=== PATIENT | male | born 1970 | race American Indian/Alaskan Native ===

== ENCOUNTER 2022-02-28 14:56 | Inpatient (IN) | payer BC ==
[2022-02-28] MEDS ORDERED: fentaNYL 100 MCG/2 ML INJ IV ONE (15:54)
--- NOTE | 2022-02-28 16:17 | Emergency Department Report ---
HPI - General Chief Complaint: Chest Pain Time Seen by Provider: 02/28/22 15:13 - [facility] HPI: Room 21 The patient is a 51-year-old male present with chief complaint of chest pain shortness of breath. Patient states he initially developed chest pain 02/26/2022 and went to [place] emergency department that evening. Patient was diagnosed with a PE and initiated on Xarelto. Patient states has been compliant with medication however today his chest pain shortness of breath increased dramatically. Patient called 911 and was transported to the ED. In the ED the patient was found to be hypoxic from 90 - 91% on room air. Patient states he is not on home O2. Patient currently gets his chest pain a score of 10/10. 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 (febrile?) - Family History Family history: no significant - Social History Smoking Status: Never Smoker Substance Use Type: Alcohol (Occasional), Marijuana ED Review of Systems ROS: Stated complaint: CHEST PAIN Other details as noted in HPI Constitutional: no symptoms reported Eyes: denies: eye pain ENT: denies: throat pain Respiratory: shortness of breath Cardiovascular: chest pain Endocrine: no symptoms reported Gastrointestinal: denies: abdominal pain Genitourinary: denies: dysuria Musculoskeletal: myalgia Neurological: denies: headache Physical Exam - Physical Exam Vital Signs: Vital Signs 02/28/22 15:04 Temperature 98.5 F Pulse Rate 70 Respiratory 14 Rate Blood Pressure 118/69 [Left] O2 Sat by Pulse 98 Oximetry Physical Exam: GENERAL: The patient is well-developed well-nourished male lying on stretcher not appearing to be in acute distress. [] HEENT: Normocephalic. Atraumatic. Extraocular motions are intact. Patient has moist mucous membranes. NECK: Supple. Trachea midline CHEST/LUNGS: Clear to auscultation. There is no respiratory distress noted. HEART/CARDIOVASCULAR: Regular. There is no tachycardia. There is no gallop rub or murmur. ABDOMEN: Abdomen is soft, nontender. Patient has normal bowel sounds. There is no abdominal distention. SKIN: There is no rash. There is no edema. There is no diaphoresis. NEURO: The patient is awake, alert, and oriented. The patient is cooperative. The patient has no focal neurologic deficits. The patient has normal speech. GCS 15 MUSCULOSKELETAL: There is no evidence of acute injury. ED Course Vital Signs 02/28/22 15:04 Temperature 98.5 F Pulse Rate 70 Respiratory 14 Rate Blood Pressure 118/69 [Left] O2 Sat by Pulse 98 Oximetry ED Medical Decision Making - Lab Data Result diagrams: 02/28/22 16:27 02/28/22 16:27 Laboratory Tests 02/28/22 02/28/22 02/28/22 16:27 16:27 16:27 WBC 8.8 RBC 5.30 H Hgb 15.0 Hct 46.0 H MCV 87 MCH 28 MCHC 33 RDW 13.3 Plt Count 273 Lymph % (Auto) 11.9 L [place] % (Auto) 10.4 H Eos % (Auto) 0.4 Baso % (Auto) 0.4 Lymph # (Auto) 1.0 L [place] # (Auto) 0.9 H Eos # (Auto) 0.0 Baso # (Auto) 0.0 Seg Neutrophils % 76.9 H Seg Neutrophils # 6.7 PT 24.9 H INR 1.97 H APTT 42.4 H Sodium 139 Potassium 4.6 Chloride 100.5 Carbon Dioxide 29 Anion Gap 14 BUN 13 Creatinine 1.3 Estimated GFR 58 BUN/Creatinine Ratio 10 Glucose 102 H Calcium 8.7 Total Creatine Kinase 215 H CK-MB (CK-2) 1.6 CK-MB (CK-2) Rel Index 0.7 Troponin T < 0.010 NT-Pro-B Natriuret Pep 9.66 - EKG Data -: EKG Interpreted by Ri EKG shows normal: sinus rhythm Rate: normal - EKG Data When compared to previous EKG there are: previous EKG unavailable Interpretation: nonspecific ST-T wave zaida - Radiology Data Radiology results: report reviewed (CTA chest, CT abdomen pelvis), image reviewed (CTA chest, CT abdomen pelvis) [facility], [place] [address] [place] [address] Cat Scan Report Signed Patient: HUEY RANGEL MR#: [id number] : 1970 Acct:[id number] Age/Sex: 51 / M ADM Date: 02/28/22 Loc: ED Attending Dr: Ordering Physician: WILMER ADEN MD Date of Service: 02/28/22 Procedure(s): CT angio chest Accession Number(s): [id number] cc: WILMER ADEN MD CTA CHEST WITH CONTRAST INDICATION / CLINICAL INFORMATION: Chest pain, shortness of breath 100ml of [id number]. TECHNIQUE: Axial CT images were obtained through the chest after injection of IV contrast. 3 plane MIP and/or 3D reconstructions were produced. All CT scans at this location are performed using CT dose reduction for ALARA by means of automated exposure control. COMPARISON: None available. FINDINGS: PULMONARY EMBOLUS: None. HEART: No significant abnormality. THORACIC AORTA: No significant abnormality. CORONARY ARTERY CALCIFICATION: Absent -- None. PLEURA: Small layering left-sided pleural effusion. No pneumothorax. LUNGS: Alveolar consolidation with dense groundglass opacities within the lingula consistent with acute pneumonia. Other milder scattered subpleural consolidation and confluent atelectasis involving the right middle lobe and bilateral lung bases. LYMPH NODES: No pathologic thoracic lymphadenopathy. UPPER ABDOMEN: No acute findings. SKELETAL STRUCTURES: No acute or destructive osseous process. Mild bilateral retroareolar gynecomastia. IMPRESSION: 1. No evidence for pulmonary thromboembolus. 2. Mild acute pneumonia, most notably within the lingula, and small layering left pleural effusion. 3. Confluent atelectasis within the right middle lobe and bilateral lung bases. Signer Name: Kelly Servin MD Signed: 02/28/2022 6:13 PM Workstation Name: [id number] Transcribed By: RH Dictated By: KELLY SERVIN MD Electronically Authenticated By: KELLY SERVIN MD Signed Date/Time: 02/28/221812 DD/ 07 TD/TT: [facility], [place] [address] [place] [address] Cat Scan Report Signed Patient: HUEY RANGEL MR#: [id number] : 1970 Acct:[id number] Age/Sex: 51 / M A DM Date: 02/28/22 Loc: ED Attending Dr: Ordering Physician: WILMER ADEN MD Date of Service: 02/28/22 Procedure(s): CT abdomen pelvis w con Accession Number(s): [id number] cc: WILMER ADEN MD CT ABDOMEN AND PELVIS WITH CONTRAST INDICATION / CLINICAL INFORMATION: Abdominal pain. TECHNIQUE: Axial CT images were obtained through the abdomen and pelvis after 100 mL Omnipaque [address] scans at this location are performed using CT dose red uction for ALARA by means of automated exposure control. COMPARISON: None available. FINDINGS: LOWER CHEST: Small left pleural effusion with bibasilar atelectasis. Lingular pneumonia. LIVER: No significant abnormality. GALLBLADDER: No significant abnormality. BILE DUCTS: No significant abnormality. PANCREAS: No significant abnormality. SPLEEN: No significant abnormality. ADRENALS: No significant abnormality. RIGHT KIDNEY / URETER: No significant abnormality. LEFT KIDNEY / URETER: No significant abnormality. STOMACH / SMALL BOWEL: No significant abnormality. COLON: No significant abnormality. APPENDIX: No significant abnormality. PERITONEUM: No free fluid. No free air. No fluid collection. LYMPH NODES: No significant adenopathy. AORTA / ARTERIES: No significant abnormality. IVC / VEINS: No significant abnormality. URINARY BLADDER: No significant abnormality. REPRODUCTIVE ORGANS: No significant abnormality. ADDITIONAL FINDINGS: None. SKELETAL SYSTEM: Curvilinear subchondral sclerosis in both femoral heads with no articular surface collapse. No acute skeletal abnormality. IMPRESSION: 1. No acute process in the abdomen or pelvis. 2. Lingular pneumonia with small pleural effusion and bibasilar atelectasis. 3. Bilateral femoral head avascular necrosis, stage II. Signer Name: Sabi Izquierdo MD Signed: 02/28/2022 6:42 PM Workstation Name: [id number] Transcribed By: DT Dictated By: Christian Izquierdo MD Electronically Authenticated By: Christian Izquierdo MD Signed Date/Time: 02/28/221841 DD/ 39 TD/TT: - Differential Diagnosis PE, hypoxia Critical care attestation.: If time is entered above; I have spent that time in minutes in the direct care of this critically ill patient, excluding procedure time. ED Disposition Clinical Impression: Hypoxia, Chest pain, Pneumonia, History of pulmonary embolus (PE) Disposition: ADMITTED INPATIENT Is pt being admited?: Yes Does the pt Need Aspirin: No Condition: Serious Instructions: Nonspecific Chest Pain, Adult, Bacterial Pneumonia (ED) Time of Disposition: 18:46 (Care transferred to hospitalist (Dr. Mary)) Heart Score - HEART Score History: Slightly suspicious EKG: Non-specific Age: 45-65 Risk factors: 1-2 risk factors Troponin: < normal limit HEART Score: 3 - EKG Read Time Time EKG Completed: 15:31 EKG Read Time: 15:37
[2022-02-28] MEDS: ONDANSETRON 4 MG/2 ML INJ IV ONE ×2 (16:25→20:11)
[2022-02-28 17:03] LABS: Basophils % (Auto) 0.4 % (0.0-1.8); Creatine Kinase MB 1.6 ng/mL (0.0-4.0); Eosinophils % (Auto) 0.4 % (0.0-4.3); Lymphocytes % (Auto) 11.9 % (13.4-35.0); Mean Corpuscular HGB Conc 33 % (32-34); Mean Corpuscular Volume 87 fl (84-94); Monocytes # (Auto) 0.9 K/mm3 (0.0-0.8); Monocytes % (Auto) 10.4 % (0.0-7.3); Platelet Count 273 K/mm3 (140-440); Red Cell Distribution Width 13.3 % (13.2-15.2)
[2022-02-28 17:04] LABS: BUN/Creatinine Ratio 10; Blood Urea Nitrogen 13 mg/dL (9-20); Calcium 8.7 mg/dL (8.4-10.2); Hemolysis Index 51
[2022-02-28 17:14] LABS: INR 1.97 (0.87-1.13)
[2022-02-28 17:15] LABS: Partial Thromboplastin Time 42.4 Sec. (24.2-36.6)
--- NOTE | 2022-02-28 18:17 | Cat Scan Report ---
CTA CHEST WITH CONTRAST INDICATION / CLINICAL INFORMATION: Chest pain, shortness of breath 100ml of [id number]. TECHNIQUE: Axial CT images were obtained through the chest after injection of IV contrast. 3 plane OK P and/or 3D reconstructions were produced. All CT scans at this location are performed using CT dose reduction for ALARA by means of automated exposure control. COMPARISON: None available. FINDINGS: PULMONARY EMBOLUS: None. HEART: No significant abnormality. THORACIC AORTA: No significant abnormality. CORONARY ARTERY CALCIFICATION: Absent -- None. PLEURA: Small layering left-sided pleural effusion. No pneumothorax. LUNGS: Alveolar consolidation with dense groundglass opacities within the lingula consistent with acu te pneumonia. Other milder scattered subpleural consolidation and confluent atelectasis involving the right middle lobe and bilateral lung bases. LYMPH NODES: No pathologic thoracic lymphadenopathy. UPPER ABDOMEN: No acute findings. SKELETAL STRUCTURES: No acute or destructive osseous process. Mild bilateral retroareolar gynecomastia. IMPRESSION: 1. No evidence for pulmonary thromboembolus. 2. Mild acute pneumonia, most notably within the lingula, and small layering left pleural effusion. 3. Confluent atelectasis within the right middle lobe and bilateral lung bases. Signer Name: Jose Servin MD Signed: 02/28/2022 6:13 PM Workstation Name: [email or web address]
--- NOTE | 2022-02-28 18:47 | Cat Scan Report ---
CT ABDOMEN AND PELVIS WITH CONTRAST INDICATION / CLINICAL INFORMATION: Abdominal pain. TECHNIQUE: Axial CT images were obtained through the abdomen and pelvis after 100 mL Omnipaque [address] scans at this location are performed using CT dose reduction for ALARA by means of automated exposure control. COMPARISON: None available. FINDINGS: LOWER CHEST: Small left pleural effusion with bibasilar atelectasis. Lingular pneumonia. LIVER: No significant abnormality. GALLBLADDER: No significant abnormality. BILE DUCTS: No significant abnormality. PANCREAS: No significant abnormality. SPLEEN: No significant abnormality. ADRENALS: No significant abnormality. RIGHT KIDNEY / URETER: No significant abnormality. LEFT KIDNEY / URETER: No significant abnormality. STOMACH / SMALL BOWEL: No significant abnormality. COLON: No significant abnormality. APPENDIX: No significant abnormality. PERITONEUM: No free fluid. No free air. No fluid collection. LYMPH NODES: No significant adenopathy. AORTA / ARTERIES: No significant abnormality. IVC / VEINS: No significant abnormality. URINARY BLADDER: No significant abnormality. REPRODUCTIVE ORGANS: No significant abnormality. ADDITIONAL FINDINGS: None. SKELETAL SYSTEM: Curvilinear subchondral sclerosis in both femoral heads with no articular surface co llapse. No acute skeletal abnormality. IMPRESSION: 1. No acute process in the abdomen or pelvis. 2. Lingular pneumonia with small pleural effusion and bibasilar atelectasis. 3. Bilateral femoral head avascular necrosis, stage II. Signer Name: Sabi Izquierdo MD Signed: 02/28/2022 6:42 PM Workstation Name: [email or web address]
[2022-02-28] MEDS ORDERED: ACETAMINOPHEN 325 MG TAB PO PRN ×2 (18:49→21:46)
[2022-02-28] MEDS ORDERED: ONDANSETRON 4 MG/2 ML INJ IV PRN ×2 (18:49→21:46)
[2022-02-28] MEDS ORDERED: cefTRIAXone/NS 1 GM/50 ML 1 GM/50 ML BAG IV ONE (19:06)
[2022-02-28] MEDS ORDERED: AZITHROMYCIN/NS 500 MG/250 ML 500 MG/250 ML BAG IV ONE (19:06)
[2022-02-28] MEDS: MORPHINE 2 MG/1 ML INJ IV PRN (20:12)
[2022-02-28] MEDS ORDERED: MORPHINE 2 MG/1 ML INJ IV PRN (21:46)
[2022-02-28] MEDS ORDERED: ALBUTEROL 2.5 MG/3 ML NEBU IH PRN (21:46)
--- NOTE | 2022-02-28 21:54 | History and Physical Report ---
History of Present Illness Date of examination: 02/28/22 Date of admission: 02/28/22 Chief complaint: Chest pain History of present illness: 51-year-old male with history of pulmonary embolism on Xarelto, CHF, high cholesterol, hypertension was brought to the emergency room because of chest pain shortness of breath. Patient states he initially developed chest pain 02/26/2022 and [facility]. Patient was diagnosed with a PE and initiated on Xarelto. Patient states has been compliant with medication however today his chest pain shortness of breath increased dramatically. Patient called 911 and was transported to the ED. In the ED the patient was found to be hypoxic from 90 - 91% on room air. Patient states he is not on home O2. Patient currently gets his chest pain a score of 10/10. In the emergency room initial cardiac enzyme is negative. But patient CT scan of the chest shows no evidence for pulmonary thromboembolism. Mild acute pneumonia, most notably within the lingula and a small layering left pleural effusion. Confluent atelectasis within the right middle lobe and bilateral lung bases. 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 (febrile?)) Social history: alcohol abuse, other (Marijuana) Family history: no significant family history Medications and Allergies Allergies Allergy/AdvReac Type Severity Reaction Status Date / Time lisinopril Allergy Unknown Verified 02/28/22 16:29 Active Meds: Active Medications Acetaminophen (Acetaminophen 325 Mg Tab) 650 mg PO Q4H PRN PRN Reason: Pain MILD(1-3)/Fever >100.5/JAUREGUI Acetaminophen (Acetaminophen 325 Mg Tab) 650 mg PO Q4H PRN PRN Reason: Pain MILD(1-3)/Fever >100.5/JAUREGUI Morphine Sulfate (Morphine 2 Mg/1 Ml Inj) 2 mg IV Q4H PRN PRN Reason: Pain, Moderate (4-6) Last Admin: 02/28/22 20:12 Dose: 2 mg Ondansetron HCl (Ondansetron 4 Mg/2 Ml Inj) 4 mg IV Q8H PRN PRN Reason: Nausea And Vomiting Ondansetron HCl (Ondansetron 4 Mg/2 Ml Inj) 4 mg IV Q8H PRN PRN Reason: Nausea And Vomiting Sodium Chloride (Sodium Chloride 0.9% 10 Ml Flush Syringe) 10 ml IV BID BEN Sodium Chloride (Sodium Chloride 0.9% 10 Ml Flush Syringe) 10 ml IV PRN PRN PRN Reason: LINE FLUSH Sodium Chloride (Sodium Chloride 0.9% 10 Ml Flush Syringe) 10 ml IV BID BEN Review of Systems All systems: negative Constitutional: other (Myalgia) Cardiovascular: chest pain, shortness of breath, dyspnea on exertion Respiratory: shortness of breath, dyspnea on exertion Exam - Constitutional Vitals: Temp Pulse Resp BP Pulse Ox 98.5 F 74 19 130/82 88 02/28/22 15:04 02/28/22 19:00 02/28/22 19:00 02/28/22 19:00 02/28/22 19:00 General appearance: Present: no acute distress, well-nourished - EENT Eyes: Present: PERRL ENT: hearing intact, clear oral mucosa - Neck Neck: Present: supple, normal ROM - Respiratory Respiratory effort: normal Respiratory: bilateral: CTA - Cardiovascular Heart Sounds: Present: S1 & S2. Absent: rub, click - Extremities Extremities: pulses symmetrical, No edema Peripheral Pulses: within normal limits - Abdominal General gastrointestinal: Present: soft, non-tender, non-distended, normal bowel sounds Male genitourinary: Present: normal - Integumentary Integumentary: Present: clear, warm, dry - Musculoskeletal Musculoskeletal: gait normal, strength equal bilaterally - Psychiatric Psychiatric: appropriate mood/affect, intact judgment & insight - Neurologic Neurologic: CNII-XII intact, moves all extremities HEART Score - HEART Score EKG: Non-specific Age: 45-65 Risk factors: 1-2 risk factors Troponin: Troponin T < 0.010 ng/mL (0.00-0.029) 02/28/22 16:27 Troponin: < normal limit Results - Labs CBC & Chem 7: 02/28/22 16:27 02/28/22 16:27 Labs: Laboratory Last Values WBC 8.8 K/mm3 (4.5-11.0) 02/28/22 16:27 RBC 5.30 M/mm3 (3.65-5.03) H 02/28/22 16:27 Hgb 15.0 gm/dl (11.8-15.2) 02/28/22 16:27 Hct 46.0 % (35.5-45.6) H 02/28/22 16: MCV 87 fl (84-94) 02/28/22 16: MCH 28 pg (28-32) 02/28/22 16: MCHC 33 % (32-34) 02/28/22 16:27 RDW 13.3 % (13.2-15.2) 02/28/22 16: Plt Count 273 K/mm3 (140-440) 02/28/22 16:27 Lymph % (Auto) 11.9 % (13.4-35.0) L 02/28/22 16: [place] % (Auto) 10.4 % (0.0-7.3) H 02/28/22 16: Eos % (Auto) 0.4 % (0.0-4.3) 02/28/22 16: Baso % (Auto) 0.4 % (0.0-1.8) 02/28/22 16: Lymph # (Auto) 1.0 K/mm3 (1.2-5.4) L 02/28/22 16:27 [place] # (Auto) 0.9 K/mm3 (0.0-0.8) H 02/28/22 16: Eos # (Auto) 0.0 K/mm3 (0.0-0.4) 02/28/22 16: Baso # (Auto) 0.0 K/mm3 (0.0-0.1) 02/28/22 16: Seg Neutrophils % 76.9 % (40.0-70.0) H 02/28/22 16: Seg Neutrophils # 6.7 K/mm3 (1.8-7.7) 02/28/22 16:27 PT 24.9 Sec. (12.2-14.9) H 02/28/22 16:27 INR 1.97 (0.87-1.13) H 02/28/22 16:27 APTT 42.4 Sec. (24.2-36.6) H 02/28/22 16:27 Sodium 139 mmol/L (137-145) 02/28/22 16:27 Potassium 4.6 mmol/L (3.6-5.0) 02/28/22 16:27 Chloride 100.5 mmol/L (98-107) 02/28/22 16:27 Carbon Dioxide 29 mmol/L (22-30) 02/28/22 16:27 Anion Gap 14 mmol/L 02/28/22 16:27 BUN 13 mg/dL (9-20) 02/28/22 16:27 Creatinine 1.3 mg/dL (0.8-1.3) 02/28/22 16:27 Estimated GFR 58 ml/min 02/28/22 16:27 BUN/Creatinine Ratio 10 % 02/28/22 16:27 Glucose 102 mg/dL (75-100) H 02/28/22 16:27 Calcium 8.7 mg/dL (8.4-10.2) 02/28/22 16:27 Total Creatine Kinase 215 units/L (55-170) H 02/28/22 16:27 CK-MB (CK-2) 1.6 ng/mL (0.0-4.0) 02/28/22 16:27 CK-MB (CK-2) Rel Index 0.7 (0-4) 02/28/22 16:27 Troponin T < 0.010 ng/mL (0.00-0.029) 02/28/22 16:27 NT-Pro-B Natriuret Pep 9.66 pg/mL (0-900) 02/28/22 16:27 - Imaging and Cardiology CT scan - chest: report reviewed Assessment and Plan VTE prophylaxis?: Chemical Plan of care discussed with patient/family: Yes - Patient Problems (1) Pneumonia Status: Acute Plan to address problem: Admit the patient to the medical telemetry. Oxygen via nasal cannula 3 L/min. DuoNeb by nebulizer every 4 hours. Albuterol via nebulizer every 4 hours as needed. Rocephin 2 g IV daily. Zithromax 500 mg p.o. daily. We will do the blood culture and sputum culture. Recheck CBC in the morning (2) Chest pain Status: Acute Plan to address problem: Initial troponin is 0.010. patient is on Xarelto 15 mg p.o. twice a day. We will do the serial troponin. if needed will consult cardiology. (3) CHF (congestive heart failure) Status: Acute Plan to address problem: Is stable. Fluid restriction. Maintain input output. Daily weight. Continue home medication. Outpatient follow-up with cardiology (4) Hypoxia Status: Acute Plan to address problem: Oxygen via nasal cannula 3 L/min. DuoNeb by nebulizer every 4 hours. Albuterol via nebulizer every 4 hours as needed. Recheck CBC in the morning (5) History of pulmonary embolus (PE) Status: Acute Plan to address problem: Patient is on Xarelto. We will continue the Xarelto. (6) Hyperlipidemia Status: Acute Plan to address problem: Continue home medication. Recheck lipid panel in the morning and adjust the dose of medication (7) DVT prophylaxis Status: Acute Plan to address problem: Xarelto 15 mg p.o. twice a day for DVT prophylaxis. Pepcid 20 mg p.o. twice daily for GI prophylaxis. Patient is a full code
[2022-03-01] MEDS: MORPHINE 4 MG/1 ML INJ IV PRN ×5 (01:41→18:30)
[2022-03-01] MEDS: IPRATROPIUM/ALBUTEROL SULFATE 3 ML AMPUL.NEB IH SCH ×4 (02:45→20:05)
[2022-03-01] MEDS: FAMOTIDINE 20 MG TAB PO SCH ×3 (02:45→21:05)
[2022-03-01 07:09] LABS: Basophils % (Auto) 0.4 % (0.0-1.8); Eosinophils % (Auto) 0.4 % (0.0-4.3); Hematocrit 43.1 % (35.5-45.6); Hemoglobin 14.5 gm/dl (11.8-15.2); Lymphocytes # (Auto) 1.8 K/mm3 (1.2-5.4); Lymphocytes % (Auto) 20.9 % (13.4-35.0); Mean Corpuscular HGB Conc 34 % (32-34); Mean Corpuscular Volume 86 fl (84-94); Monocytes # (Auto) 1.2 K/mm3 (0.0-0.8); Monocytes % (Auto) 13.6 % (0.0-7.3); Platelet Count 286 K/mm3 (140-440); Red Blood Count 5.03 M/mm3 (3.65-5.03); Red Cell Distribution Width 13.3 % (13.2-15.2)
[2022-03-01 07:28] LABS: BUN/Creatinine Ratio 9; Blood Urea Nitrogen 11 mg/dL (9-20); Calcium 8.6 mg/dL (8.4-10.2); Hemolysis Index 1
--- NOTE | 2022-03-01 08:47 | Progress Note ---
Assessment and Plan Assessment and plan: (1) Pneumonia/community-acquired/present on admission Admit the patient to the medical telemetry. Oxygen via nasal cannula 3 L/min. DuoNeb by nebulizer every 4 hours. Albuterol via nebulizer every 4 hours as needed. Rocephin 2 g IV daily. Zithromax 500 mg p.o. daily. We will do the blood culture and sputum culture. Recheck CBC in the morning -High suspicion for COVID-19 [facility] PCR test requested Isolation precautions (2) atypical chest pain Serial cardiac enzymes, serial EKG Initial troponin is 0.010. patient is on Xarelto 15 mg p.o. twice a day. Supportive care, cardiology evaluation if needed (3) CHF (congestive heart failure) Is stable. Fluid restriction. Maintain input output. Daily weight. Continue home medication. Outpatient follow-up with cardiology (4) acute hypoxic respiratory failure/ requiring supplemental oxygen/on admission Due to underlying pneumonia/history of PE oxygen via nasal cannula 3 L/min. DuoNeb by nebulizer every 4 hours. Albuterol via nebulizer every 4 hours as needed. Recheck CBC in the morning (5) History of pulmonary embolus (PE) Patient is on Xarelto. We will continue the Xarelto. Oxygen via nasal cannula, supportive care (6) Hyperlipidemia Continue home medication. Recheck lipid panel in the morning and adjust the dose of medication (7) DVT prophylaxis Xarelto 15 mg p.o. twice a day for DVT prophylaxis. Pepcid 20 mg p.o. twice daily for GI prophylaxis. Patient is a full code --advance care planning; +30 minutes Patient's condition discussed in detail, I discussed patient's test and reports, I discussed patient's diagnosis I discussed treatment plan, I discussed the need for consultants evaluation if symptoms do not improve, I discussed briefly His discharge plan stable. Patient had questions. Answered all of them Closely monitor the patient and adjust the management as needed Follow-up pending tests Home O2 evaluation at discharge DC planning per case management Plan of care reviewed with the patient and his nurse Also discussed with the case management and multidisciplinary rounds History Interval history: I have seen and examined the patient at the bedside Patient's chart and medications reviewed Patient was admitted with chest pain, shortness of breath, pneumonia Patient also has history of PE on Xarelto Patient feels slightly better On supplemental nasal cannula oxygen Vital signs reviewed Hospitalist Physical - Constitutional Vitals: Temp Pulse Resp BP Pulse Ox 99.4 F 84 18 126/86 94 03/01/22 02:24 03/01/22 08:22 03/01/22 08:22 03/01/22 02:24 03/01/22 08:31 General appearance: Present: mild distress, well-nourished - EENT Eyes: Present: PERRL, EOM intact - Neck Neck: Present: supple, normal ROM - Respiratory Respiratory effort: normal Respiratory: bilateral: diminished, rhonchi, negative: rales, wheezing - Cardiovascular Rhythm: regular Heart Sounds: Present: S1 & S2 - Extremities Extremities: no ischemia, No edema - Abdominal General gastrointestinal: soft, non-tender, non-distended, normal bowel sounds - Integumentary Integumentary: Present: clear, warm - Psychiatric Psychiatric: appropriate mood/affect, cooperative - Neurologic Neurologic: moves all extremities HEART Score - HEART Score EKG: Non-specific Age: 45-65 Risk factors: 1-2 risk factors Troponin: Troponin T < 0.010 ng/mL (0.00-0.029) 02/28/22 16:27 Troponin: < normal limit Results - Labs CBC & Chem 7: 03/01/22 06:14 03/01/22 06:14 Labs: Laboratory Last Values WBC 8.8 K/mm3 (4.5-11.0) 03/01/22 06:14 RBC 5.03 M/mm3 (3.65-5.03) 03/01/22 06:14 Hgb 14.5 gm/dl (11.8-15.2) 03/01/22 06:14 Hct 43.1 % (35.5-45.6) 03/01/22 06:14 MCV 86 fl (84-94) 03/01/22 06:14 MCH 29 pg (28-32) 03/01/22 06:14 MCHC 34 % (32-34) 03/01/22 06:14 RDW 13.3 % (13.2-15.2) 03/01/22 06:14 Plt Count 286 K/mm3 (140-440) 03/01/22 06:14 Lymph % (Auto) 20.9 % (13.4-35.0) 03/01/22 06:14 [place] % (Auto) 13.6 % (0.0-7.3) H 03/01/22 06:14 Eos % (Auto) 0.4 % (0.0-4.3) 03/01/22 06:14 Baso % (Auto) 0.4 % (0.0-1.8) 03/01/22 06:14 Lymph # (Auto) 1.8 K/mm3 (1.2-5.4) 03/01/22 06:14 [place] # (Auto) 1.2 K/mm3 (0.0-0.8) H 03/01/22 06:14 Eos # (Auto) 0.0 K/mm3 (0.0-0.4) 03/01/22 06:14 Baso # (Auto) 0.0 K/mm3 (0.0-0.1) 03/01/22 06:14 Seg Neutrophils % 64.7 % (40.0-70.0) 03/01/22 06:14 Seg Neutrophils # 5.7 K/mm3 (1.8-7.7) 03/01/22 06:14 PT 24.9 Sec. (12.2-14.9) H 02/28/22 16:27 INR 1.97 (0.87-1.13) H 02/28/22 16:27 APTT 42.4 Sec. (24.2-36.6) H 02/28/22 16:27 Sodium 140 mmol/L (137-145) 03/01/22 06:14 Potassium 3.9 mmol/L (3.6-5.0) 03/01/22 06:14 Chloride 102.3 mmol/L (98-107) 03/01/22 06:14 Carbon Dioxide 30 mmol/L (22-30) 03/01/22 06:14 Anion Gap 12 mmol/L 03/01/22 06:14 BUN 11 mg/dL (9-20) 03/01/22 06:14 Creatinine 1.2 mg/dL (0.8-1.3) 03/01/22 06:14 Estimated GFR > 60 ml/min 03/01/22 06:14 BUN/Creatinine Ratio 9 % 03/01/22 06:14 Glucose 95 mg/dL (75-100) 03/01/22 06:14 Calcium 8.6 mg/dL (8.4-10.2) 03/01/22 06:14 Total Creatine Kinase 215 units/L (55-170) H 02/28/22 16:27 CK-MB (CK-2) 1.6 ng/mL (0.0-4.0) 02/28/22 16:27 CK-MB (CK-2) Rel Index 0.7 (0-4) 02/28/22 16:27 Troponin T < 0.010 ng/mL (0.00-0.029) 02/28/22 16:27 NT-Pro-B Natriuret Pep 9.66 pg/mL (0-900) 02/28/22 16:27 Microbiology: Microbiology 02/28/22 19:53 Peripheral/Venous Blood Culture - Preliminary Culture in Progress 02/28/22 19:53 Peripheral/Venous Blood Culture - Preliminary Culture in Progress [place]/IV: Voiding Method Toilet Active Medications - Current Medications Current Medications: Generic Name Dose Route Start Last Admin Trade Name Freq PRN Reason Stop Dose Admin Acetaminophen 650 mg 02/28/22 18:49 Acetaminophen 325 Mg Tab PO Q4H PRN Pain MILD(1-3)/Fever >100.5/JAUREGUI Albuterol 2.5 mg 02/28/22 21:46 Albuterol 2.5 Mg/3 Ml Nebu IH Q3HRT PRN Shortness Of Breath Albuterol/Ipratropium 1 ampul 03/01/22 02:00 03/01/22 08:21 Ipratropium/Albuterol Sulfate 3 Ml Ampul.Neb IH 1 ampul Q6HRT BEN Administration Azithromycin 500 mg 03/01/22 10:00 Azithromycin 250 Mg Tab PO QDAY [facility] Protocol Famotidine 20 mg 02/28/22 22:00 03/01/22 02:45 Famotidine 20 Mg Tab PO Not Given BID [facility] Ceftriaxone Sodium 2 gm in 100 mls @ 200 mls/hr 03/01/22 10:00 Rocephin/Ns 2 Gm/100 Ml IV Q24HR [facility] Protocol Morphine Sulfate 2 mg 02/28/22 18:49 02/28/22 20:12 Morphine 2 Mg/1 Ml Inj IV 2 mg Q4H PRN Administration Pain, Moderate (4-6) Morphine Sulfate 4 mg 02/28/22 21:46 03/01/22 06:08 Morphine 4 Mg/1 Ml Inj IV 4 mg Q4H PRN Administration Pain , Severe (7-10) Ondansetron HCl 4 mg 02/28/22 18:49 03/01/22 01:42 Ondansetron 4 Mg/2 Ml Inj IV 4 mg Q8H PRN Administration Nausea And Vomiting Rivaroxaban 15 mg 03/01/22 08:00 Rivaroxaban 15 Mg Tab PO BIDDIAB BEN Sodium Chloride 10 ml 02/28/22 22:00 03/01/22 02:45 Sodium Chloride 0.9% 10 Ml Flush Syringe IV Not Given BID BEN Sodium Chloride 10 ml 02/28/22 18:49 Sodium Chloride 0.9% 10 Ml Flush Syringe IV PRN PRN LINE FLUSH
[2022-03-01] MEDS: AZITHROMYCIN 250 MG TAB PO SCH (10:14)
[2022-03-01] MEDS: cefTRIAXone/NS 2 GM/100 ML 2 GM/100 ML BAG IV SCH (10:17)
[2022-03-01 11:12] LABS: Alanine Aminotransferase 15 units/L (7-56); Albumin 3.9 g/dL (3.9-5)
[2022-03-01 11:13] LABS: Bilirubin,Direct < 0.2 mg/dL (0-0.2)
[2022-03-01] MEDS: RIVAROXABAN 15 MG TAB PO SCH ×2 (13:50→21:13)
[2022-03-01] MEDS: MORPHINE 2 MG/1 ML INJ IV PRN (22:56)
[2022-03-02] MEDS: MORPHINE 4 MG/1 ML INJ IV PRN ×4 (02:10→16:32)
[2022-03-02] MEDS: IPRATROPIUM/ALBUTEROL SULFATE 3 ML AMPUL.NEB IH SCH ×4 (02:15→20:35)
--- NOTE | 2022-03-02 09:45 | Electrocardiograph Report ---
[facility] Test Date: 2022-02-28 Test Time: 15:31:20 Pat Name: HUEY RANGEL Department: Room: A363 Gender: M [employer] Order Clerk: GP : 1970 Requested By: SAMARIA CLEMENTE Order Number: [id number] Reading MD: Sandeep Yi Measurements Intervals [place] Rate: 73 P: 27 NE: 155 QRS: 25 QRSD: 78 T: -1 QT: 341 QTc: 377 Interpretive Statements Sinus rhythm nonspecific st-t No previous ECG available for comparison Electronically Signed On 03-02-2022 9:45:24 EDT by Sandeep Yi
[2022-03-02] MEDS: RIVAROXABAN 15 MG TAB PO SCH ×2 (09:53→18:11)
[2022-03-02] MEDS: cefTRIAXone/NS 2 GM/100 ML 2 GM/100 ML BAG IV SCH (09:53)
[2022-03-02] MEDS: AZITHROMYCIN 250 MG TAB PO SCH (09:54)
[2022-03-02] MEDS: FAMOTIDINE 20 MG TAB PO SCH ×2 (09:54→21:59)
[2022-03-02] MEDS: oxyCODONE /ACETAMINOPHEN 5-325MG TAB PO PRN ×2 (14:49→21:59)
--- NOTE | 2022-03-02 18:14 | Progress Note ---
Assessment and Plan Assessment and plan: (1) Pneumonia/community-acquired/present on admission Oxygen via nasal cannula 3 L/min. Continue IV Rocephin and p.o. Zithromax. Follow blood cultures, supportive care -High suspicion for COVID-19/ sanches PCR test is negative DC isolation, supportive care (2) atypical chest pain Serial cardiac enzymes, serial EKG Initial troponin is 0.010. patient is on Xarelto 15 mg p.o. twice a day. Supportive care, cardiology evaluation if needed (3) CHF (congestive heart failure) Is stable. Fluid restriction. Maintain input output. Daily weight. Continue home medication. Outpatient follow-up with cardiology (4) acute hypoxic respiratory failure/ requiring supplemental oxygen/on admission Due to underlying pneumonia/history of PE Home O2 evaluation prior to discharge Home O2 set up if needed (5) History of pulmonary embolus (PE) Patient is on Xarelto. We will continue the Xarelto. Oxygen via nasal cannula, supportive care (6) Hyperlipidemia Continue home medication. Recheck lipid panel in the morning and adjust the dose of medication (7) DVT prophylaxis Xarelto 15 mg p.o. twice a day for DVT prophylaxis. Pepcid 20 mg p.o. twice daily for GI prophylaxis. Patient is a full code --advance care planning; +30 minutes Patient's condition discussed in detail, I discussed patient's test and reports, I discussed patient's diagnosis I discussed treatment plan, I discussed the need for consultants evaluation if symptoms do not improve, I discussed briefly His discharge plan stable. Patient had questions. Answered all of them --obesity weight reduction counseling 15 to 20 minutes Patient strongly advised diet modification, exercise as tolerated, weight reduction when medically stable Also advised lifestyle changes, patient verbalized understanding --Preventive care counseling 30 minutes Closely monitor the patient and adjust the management as needed Counseled weight reduction, strongly advised to comply with medications diet and follow-up visits Strongly advised to ambulate, physical exercise Follow-up pending tests Home O2 evaluation at discharge DC planning per case management Plan of care reviewed with the patient and his nurse Also discussed with the case management and multidisciplinary rounds History Interval history: I have seen and examined the patient at the bedside this morning Patient's chart and medications reviewed Patient was admitted with community-acquired pneumonia Currently on Rocephin and Zithromax Feels slightly better Vital signs reviewed Hospitalist Physical - Constitutional Vitals: Temp Pulse Resp BP Pulse Ox 99.0 F 81 20 118/75 97 03/02/22 04:06 03/02/22 07:49 03/02/22 07:49 03/02/22 04:06 03/02/22 10:26 General appearance: Present: no acute distress, well-nourished, obese (Obese) - EENT Eyes: Present: PERRL, EOM intact - Neck Neck: Present: supple, normal ROM - Respiratory Respiratory effort: normal Respiratory: bilateral: diminished, rhonchi, negative: rales, wheezing - Cardiovascular Rhythm: regular Heart Sounds: Present: S1 & S2 - Extremities Extremities: no ischemia, No edema - Abdominal General gastrointestinal: soft, non-tender, non-distended, normal bowel sounds - Integumentary Integumentary: Present: clear, warm - Psychiatric Psychiatric: appropriate mood/affect, cooperative - Neurologic Neurologic: moves all extremities HEART Score - HEART Score EKG: Non-specific Age: 45-65 Risk factors: 1-2 risk factors Troponin: Troponin T < 0.010 ng/mL (0.00-0.029) 02/28/22 16:27 Troponin: < normal limit Results - Labs CBC & Chem 7: 03/01/22 06:14 03/01/22 06:14 Labs: Laboratory Last Values WBC 8.8 K/mm3 (4.5-11.0) 03/01/22 06:14 RBC 5.03 M/mm3 (3.65-5.03) 03/01/22 06:14 Hgb 14.5 gm/dl (11.8-15.2) 03/01/22 06:14 Hct 43.1 % (35.5-45.6) 03/01/22 06:14 MCV 86 fl (84-94) 03/01/22 06:14 MCH 29 pg (28-32) 03/01/22 06:14 MCHC 34 % (32-34) 03/01/22 06:14 RDW 13.3 % (13.2-15.2) 03/01/22 06:14 Plt Count 286 K/mm3 (140-440) 03/01/22 06:14 Lymph % (Auto) 20.9 % (13.4-35.0) 03/01/22 06:14 [place] % (Auto) 13.6 % (0.0-7.3) H 03/01/22 06:14 Eos % (Auto) 0.4 % (0.0-4.3) 03/01/22 06:14 Baso % (Auto) 0.4 % (0.0-1.8) 03/01/22 06:14 Lymph # (Auto) 1.8 K/mm3 (1.2-5.4) 03/01/22 06:14 [place] # (Auto) 1.2 K/mm3 (0.0-0.8) H 03/01/22 06:14 Eos # (Auto) 0.0 K/mm3 (0.0-0.4) 03/01/22 06:14 Baso # (Auto) 0.0 K/mm3 (0.0-0.1) 03/01/22 06:14 Seg Neutrophils % 64.7 % (40.0-70.0) 03/01/22 06:14 Seg Neutrophils # 5.7 K/mm3 (1.8-7.7) 03/01/22 06:14 PT 24.9 Sec. (12.2-14.9) H 02/28/22 16:27 INR 1.97 (0.87-1.13) H 02/28/22 16:27 APTT 42.4 Sec. (24.2-36.6) H 02/28/22 16:27 Sodium 140 mmol/L (137-145) 03/01/22 06:14 Potassium 3.9 mmol/L (3.6-5.0) 03/01/22 06:14 Chloride 102.3 mmol/L (98-107) 03/01/22 06:14 Carbon Dioxide 30 mmol/L (22-30) 03/01/22 06:14 Anion Gap 12 mmol/L 03/01/22 06:14 BUN 11 mg/dL (9-20) 03/01/22 06:14 Creatinine 1.2 mg/dL (0.8-1.3) 03/01/22 06:14 Estimated GFR > 60 ml/min 03/01/22 06:14 BUN/Creatinine Ratio 9 % 03/01/22 06:14 Glucose 95 mg/dL (75-100) 03/01/22 06:14 Calcium 8.6 mg/dL (8.4-10.2) 03/01/22 06:14 Total Bilirubin 0.50 mg/dL (0.1-1.2) 03/01/22 06:14 Direct Bilirubin < 0.2 mg/dL (0-0.2) 03/01/22 06:14 Indirect Bilirubin 0.3 mg/dL 03/01/22 06:14 AST 14 units/L (5-40) 03/01/22 06:14 ALT 15 units/L (7-56) 03/01/22 06:14 Alkaline Phosphatase 57 units/L (35-129) 03/01/22 06:14 Total Creatine Kinase 215 units/L (55-170) H 02/28/22 16:27 CK-MB (CK-2) 1.6 ng/mL (0.0-4.0) 02/28/22 16:27 CK-MB (CK-2) Rel Index 0.7 (0-4) 02/28/22 16:27 Troponin T < 0.010 ng/mL (0.00-0.029) 02/28/22 16:27 NT-Pro-B Natriuret Pep 9.66 pg/mL (0-900) 02/28/22 16:27 Total Protein 6.5 g/dL (6.3-8.2) 03/01/22 06:14 Albumin 3.9 g/dL (3.9-5) 03/01/22 06:14 Albumin/Globulin Ratio 1.5 % 03/01/22 06:14 Coronavirus (PCR) Negative (Negative) 03/01/22 11:55 Microbiology: Microbiology 02/28/22 19:53 Peripheral/Venous Blood Culture - Preliminary NO GROWTH AFTER 24 HOURS 02/28/22 19:53 Peripheral/Venous Blood Culture - Preliminary NO GROWTH AFTER 24 HOURS [place]/IV: Voiding Method Toilet Active Medications - Current Medications Current Medications: Generic Name Dose Route Start Last Admin Trade Name Freq PRN Reason Stop Dose Admin Acetaminophen 650 mg 02/28/22 18:49 Acetaminophen 325 Mg Tab PO Q4H PRN Pain MILD(1-3)/Fever >100.5/JAUREGUI Albuterol 2.5 mg 02/28/22 21:46 Albuterol 2.5 Mg/3 Ml Nebu IH Q3HRT PRN Shortness Of Breath Albuterol/Ipratropium 1 ampul 03/01/22 02:00 03/02/22 16:18 Ipratropium/Albuterol Sulfate 3 Ml Ampul.Neb IH 1 ampul Q6HRT BEN Administration Azithromycin 500 mg 03/01/22 10:00 03/02/22 09:54 Azithromycin 250 Mg Tab PO 03/04/22 10:01 500 mg QDAY BEN Administration Protocol Famotidine 20 mg 02/28/22 22:00 03/02/22 09:54 Famotidine 20 Mg Tab PO 20 mg BID BEN Administration Ceftriaxone Sodium 2 gm in 100 mls @ 200 mls/hr 03/01/22 10:00 03/02/22 09:53 Rocephin/Ns 2 Gm/100 Ml IV 03/04/22 11:59 200 mls/hr Q24HR BEN Administration Protocol Morphine Sulfate 2 mg 02/28/22 18:49 03/01/22 22:56 Morphine 2 Mg/1 Ml Inj IV 2 mg Q4H PRN Administration Pain, Moderate (4-6) Morphine Sulfate 4 mg 02/28/22 21:46 03/02/22 16:32 Morphine 4 Mg/1 Ml Inj IV 4 mg Q4H PRN Administration Pain , Severe (7-10) Ondansetron HCl 4 mg 02/28/22 18:49 03/01/22 01:42 Ondansetron 4 Mg/2 Ml Inj IV 4 mg Q8H PRN Administration Nausea And Vomiting Oxycodone/Acetaminophen 1 tab 03/02/22 14:41 03/02/22 14:49 Oxycodone /Acetaminophen 5-325mg Tab PO 1 tab Q6H PRN Administration Pain, Moderate (4-6) Rivaroxaban 15 mg 03/01/22 08:00 03/02/22 09:53 Rivaroxaban 15 Mg Tab PO 15 mg BIDDIAB BEN Administration Sodium Chloride 10 ml 02/28/22 22:00 03/02/22 12:25 Sodium Chloride 0.9% 10 Ml Flush Syringe IV 10 ml BID BEN Administration Sodium Chloride 10 ml 02/28/22 18:49 Sodium Chloride 0.9% 10 Ml Flush Syringe IV PRN PRN LINE FLUSH
[2022-03-03] MEDS: oxyCODONE /ACETAMINOPHEN 5-325MG TAB PO PRN (04:53)
[2022-03-03 04:59] VITALS: BP 137/89
[2022-03-03] MEDS: IPRATROPIUM/ALBUTEROL SULFATE 3 ML AMPUL.NEB IH SCH ×2 (08:03→14:33)
[2022-03-03] MEDS: FAMOTIDINE 20 MG TAB PO SCH (09:17)
[2022-03-03] MEDS: cefTRIAXone/NS 2 GM/100 ML 2 GM/100 ML BAG IV SCH (09:17)
[2022-03-03] MEDS: AZITHROMYCIN 250 MG TAB PO SCH (09:17)
[2022-03-03] MEDS: RIVAROXABAN 15 MG TAB PO SCH (10:00)
--- NOTE | 2022-03-03 12:14 | Discharge Summary ---
Providers - Providers Date of Admission: 02/28/22 18:50 Date of discharge: 03/03/22 Attending physician: SAMARIA CLEMENTE Hospitalization Reason for admission: Shortness of breath and atypical chest pain Condition: Stable Pertinent studies: Echocardiogram LVEF 55 to 60% diastolic heart function is normal CT abdomen and pelvis; no acute abnormality noted CTA chest no acute abnormality, lingular pneumonia with small pleural effusion bibasilar atelectasis Hospital course: 51-year-old male with history of pulmonary embolism on Xarelto, CHF, high cholesterol, hypertension was brought to the emergency room because of chest pain shortness of breath. Patient states he initially developed chest pain 02/26/2022 and went to [facility] emergency department that evening. Patient was diagnosed with a PE and initiated on Xarelto. Patient states has been compliant with medication however today his chest pain shortness of breath increased dramatically. Patient called 911 and was transported to the ED. In the ED the patient was found to be hypoxic from 90 - 91% on room air. Patient states he is not on home O2. Patient currently gets his chest pain a score of 10/10. initial cardiac enzyme is negative. But patient CT scan of the chest shows no evidence for pulmonary thromboembolism. Mild acute pneumonia, most notably within the lingula and a small layering left pleural effusion. Confluent atelectasis within the right middle lobe and bilateral lung bases.. Patient was admitted and treated for community-acquired pneumonia with empiric a ntibiotics COVID-19 test was negative patient had acute hypoxic respiratory failure requiring supplemental oxygen probably due to PE Slowly weaned off and patient is saturating well on room air Patient's symptoms significantly improved today is comfortable, no new complaints, vital signs stable, physical examination prior to discharge did not show any new changes patient is continued on Eliquis Advised to see primary care physician, airplane fueler per schedule Patient is hemodynamically and clinically stable at discharge Patient was evaluated for home oxygen however O2 sats are more than 90 to 93% No indication for home O2 Hemodynamically and clinically stable at discharge discharge diagnosis (1) Pneumonia/community-acquired/present on admission Oxygen via nasal cannula 3 L/min. Continue IV Rocephin and p.o. Zithromax. Follow blood cultures, supportive care -High suspicion for COVID-19/ sanches PCR test is negative DC isolation, supportive care (2) atypical chest pain Serial cardiac enzymes, serial EKG Initial troponin is 0.010. patient is on Xarelto 15 mg p.o. twice a day. Supportive care, cardiology evaluation if needed (3) CHF (congestive heart failure) Is stable. Fluid restriction. Maintain input output. Daily weight. Continue home medication. Outpatient follow-up with cardiology (4) acute hypoxic respiratory failure/ requiring supplemental oxygen/on admission Due to underlying pneumonia/history of PE Home O2 evaluation prior to discharge Home O2 set up if needed (5) History of pulmonary embolus (PE) Patient is on Xarelto. We will continue the Xarelto. Oxygen via nasal cannula, supportive care (6) Hyperlipidemia Continue home medication. Recheck lipid panel in the morning and adjust the dose of medication (7) DVT prophylaxis Xarelto 15 mg p.o. twice a day for DVT prophylaxis. Pepcid 20 mg p.o. twice daily for GI prophylaxis. Patient is a full code --advance care planning; +30 minutes Patient's condition discussed in detail, I discussed patient's test and reports, I discussed patient's diagnosis I discussed treatment plan, I discussed the need for consultants evaluation if symptoms do not improve, I discussed briefly His discharge plan stable. Patient had questions. Answered all of them --obesity weight reduction counseling 15 to 20 minutes Patient strongly advised diet modification, exercise as tolerated, weight reduction when medically stable Also advised lifestyle changes, patient verbalized understanding --Preventive care counseling 30 minutes Closely monitor the patient and adjust the management as needed Counseled weight reduction, strongly advised to comply with medications diet and follow-up visits Strongly advised to ambulate, physical exercise Stable at discharge Disposition: 01 HOME / SELF CARE / HOMELESS Final Discharge Diagnosis (Prints w/discharge instructions): Community acquired pneumonia. COVID-19 test negative. Atypical chest pain resolved. Acute hypoxic respiratory failure requiring supplemental oxygen on admission. History of PE on Xarelto. Hyperlipidemia. Obesity BMI 38.5. Constipation Time spent for discharge: 35 min Core Measure Documentation - Palliative Care Palliative Care/ Comfort Measures: Not Applicable - Core Measures Any of the following diagnoses?: none Exam - Constitutional Vitals: Temp Pulse Resp BP Pulse Ox 97.8 F 60 20 137/89 100 03/03/22 04:55 03/03/22 04:55 03/03/22 04:55 03/03/22 04:55 03/03/22 04:55 General appearance: Present: no acute distress, well-nourished - EENT Eyes: Present: PERRL, EOM intact - Neck Neck: Present: supple, normal ROM - Respiratory Respiratory effort: normal Respiratory: bilateral: diminished, negative: rales, rhonchi, wheezing - Cardiovascular Rhythm: regular Heart Sounds: Present: S1 & S2 - Extremities Extremities: no ischemia, No edema - Abdominal General gastrointestinal: Present: soft, non-tender, non-distended, normal bowel sounds - Integumentary Integumentary: Present: clear, warm - Musculoskeletal Musculoskeletal: strength equal bilaterally - Psychiatric Psychiatric: appropriate mood/affect, cooperative - Neurologic Neurologic: moves all extremities Plan Activity: advance as tolerated Diet: other (Cardiac diet) Additional Instructions: If you have worsening symptoms contact MD or go to the nearest emergency room as needed. Advised plenty of oral fluids, fruits and vegetables to prevent constipation. Advised to follow a primary care physician. Boot And Shoe Repairman per schedule. Advised 2 days work excuse, 03/04, 03/05 if you do not feel comfortable to return to work, may see your primary care physician for additional days of work excuse. Your oxygen saturation is more than 90% both resting room air and ambulatory room air, no criteria for home oxygen Follow up with: DENNIS KAUR [Other] - 7 Days Forms: Work/School Release Form Prescriptions: Cefuroxime Axetil [Cefuroxime] 500 mg PO Q12H #6 bisacodyL [Dulcolax] 10 mg PO DAILY PRN #10 tab PRN Reason: Constipation Azithromycin [Zithromax TAB] 500 mg PO QDAY #3
== END 2022-03-03 14:29 | disposition home or self-care (01) | DRG 193 ==
LOC: ED 14:56 → 3A 18:50
PROVIDERS: ADMIT Internal Medicine; ATTEND Internal Medicine
DX: J18.9 Pneumonia, unspecified organism (principal); J96.01 Acute respiratory failure with hypoxia; I11.0 Hypertensive heart disease with heart failure; Z20.822 Contact with and (suspected) exposure to COVID-19; I50.9 Heart failure, unspecified; E78.5 Hyperlipidemia, unspecified; E78.00 Pure hypercholesterolemia, unspecified; Z93.0 Tracheostomy status; Z71.3 Dietary counseling and surveillance; K59.00 Constipation, unspecified; Z88.8 Allergy status to other drugs, medicaments and biological substances; Z86.711 Personal history of pulmonary embolism
CPT/HCPCS: 36415; 71275; 74177; 80048; 80076; 82550; 82553; 83880; 84484; 85025; 85610; 85730; 87040; 93005; 93306; 94640; 94760; 99285; G0378; C8929; J0456; J0696; J2270; J2405; J3010; Q9967; U0003